=== PATIENT | male | born 1995 | race African-American/Black ===

== ENCOUNTER 2017-05-08 19:57 | Emergency (ER) | payer OTHER ==
[~2017-05-08] VITALS: Ht 180.3 cm; Wt 104.3 kg
[~2017-05-08 19:57] MED LIST: ZOFRAN ODT4 MG PO
== END 2017-05-08 22:05 | disposition left against medical advice (07) ==
LOC: CED 19:57
DX: Z53.21 Procedure and treatment not carried out due to patient leaving prior to being seen by health care provider (principal)